=== PATIENT | male | born 1985 | race Hispanic/Latino ===

== ENCOUNTER 2019-06-30 20:22 | Emergency (ER) | payer OTHER ==
[~2019-06-30] VITALS: Ht 172.7 cm; Wt 95.7 kg
[2019-06-30] MEDS ORDERED: KETOROLAC TROMETHAMINE 30 MG/ML VIAL IV STA (20:38)
[2019-06-30] MEDS ORDERED: KETOROLAC TROMETHAMINE 30 MG/ML VIAL ONE (20:52)
[2019-06-30] MEDS ORDERED: SODIUM CHLORIDE 0.9% 1000 ML BAG IV ONE (22:00)
[2019-06-30] MEDS ORDERED: SODIUM CHLORIDE 0.9% 1000ML 1,000 ML ONE (22:05)
--- NOTE | 2019-06-30 22:08 | Diagnostic Imaging Report ---
ADDENDUM #1 In the findings of the body of the report, the kidneys/ureters section should read: KIDNEYS/URETERS: A 4 mm calculus in the left mid ureter with minimal upstream hydroureteronephrosis. Punctate nonobstructive calculi in the bilateral renal inferior pole calyces. No cystic or solid mass lesions. And the first point in the impression should read: A 4 mm obstructive calculus in the left mid ureter with minimal upstream hydroureteronephrosis. Signed by: Nawaf Rose DO on 06/30/2019 10:24 PM ORIGINAL REPORT EXAM: CT Abdomen and Pelvis WITHOUT contrast INDICATION: Left flank pain COMPARISON: None. TECHNIQUE: Abdomen and pelvis were scanned utilizing a multidetector helical scanner from the lung base to the pubic symphysis without administration of IV contrast. Absence of intravenous contrast decreases sensitivity for detection of focal lesions and vascular pathology. Coronal and sagittal reformations were obtained. Routine protocol was performed. IV CONTRAST: None ORAL CONTRAST: None COMPLICATIONS: None RADIATION DOSE: Total DLP: 821 mGy*cm Estimated effective dose: (DLP x 0.015 x size factor) mSv CTDIvol has been reviewed. It is below the limits set by the Radiation Protocol Committee (RPC). Dose modulation, iterative reconstruction, and/or weight based adjustment of the mA/kV was utilized to reduce the radiation dose to as low as reasonably achievable. FINDINGS: LINES and TUBES: None. LOWER THORAX: Partially visualized small intercostal lung hernia along the right right lateral hemithorax presumably from remote trauma/surgery. Linear consolidative opacity and mild bronchiectatic changes in the lingula. HEPATOBILIARY: No focal hepatic lesions. No biliary ductal dilation. GALLBLADDER: There are cholecystectomy clips. SPLEEN: No splenomegaly. PANCREAS: No focal masses or ductal dilatation. ADRENALS: No adrenal nodules KIDNEYS/URETERS: No hydronephrosis. No cystic or solid mass lesions. A 4 mm calculus in the left mid ureter with minimal upstream hydroureteronephrosis. Punctate nonobstructive calculi in the bilateral renal inferior pole calyces. GI TRACT: No abnormal distention, wall thickening, or evidence of bowel obstruction. Appendix is normal. PELVIC ORGANS/BLADDER: Unremarkable. LYMPH NODES: No lymphadenopathy. VESSELS: Unremarkable. PERITONEUM / RETROPERITONEUM: A few postsurgical changes along the ventral upper peritoneum. BONES: Partially visualized bilateral mid rib deformities, presumed related to remote trauma/surgery. Minimal heterotopic ossification along the posterior aspect of the right acetabulum. SOFT TISSUES: Right ventral lower chest soft tissue defect and ventral abdominal defect likely from remote trauma/ surgery. IMPRESSION: 1. A 4 mm obstructive calculus in the left mid ureter with minimal upstream. 2. Linear consolidative opacity and mild bronchiectatic changes in the lingula are likely chronic pulmonary scarring/atelectasis. If patient has high risk pulmonary clinical history, a follow-up chest CT in one year is recommended for further evaluation. Signed by: Nawaf Rose DO on 06/30/2019 10:05 PM
== END 2019-06-30 22:34 | disposition home or self-care (01) ==
LOC: FSED 20:22
DX: R10.32 Left lower quadrant pain (principal); R31.9 Hematuria, unspecified; M54.5 Low back pain; N20.1 Calculus of ureter
CPT/HCPCS: 74176; 80048; 81003; 85025; 99284; J1885; J7030

== ENCOUNTER 2019-08-18 14:10 | Emergency (ER) | payer OTHER ==
[~2019-08-18] VITALS: Ht 170.2 cm; Wt 92.5 kg
--- OUTSIDE RECORDS SUMMARY | 2019-08-18 14:14 | XMS REPORT ---
[facility] Address Unknown Phone Unavailable Care Team Providers Care Director Compensation Name Role Phone UNKNOWN, REFFERING PP Unavailable OLENA CRAIN Unavailable Unavailable RANDYMATEO Unavailable Unavailable Problems This patient has no known problems. Allergies, Adverse Reactions, Alerts This patient has no known allergies or adverse reactions. Medications This patient has no known medications. Encounters Start Date/Time End Date/Time Encounter Type Admission Type Attending [facility] Facility Care Department Encounter ID 2019-06-20 21:31:00 2019-06-20 21:31:00 Emergency E [facility] [id number] 2019-06-01 09:13:00 2019-06-01 09:13:00 Emergency E [facility] [id number] 2019-05-22 18:24:00 2019-05-22 18:24:00 Emergency E [facility] [id number] Results Test Description Test Time Test Comments Text Results Atomic Results Result Comments CT ABD/PEL WO CONTRAST-HOPD 2019-06-30 21:47:00 [place] [address] Patient Name: MARY ANN ZIMMERMAN MR #: [id number] : 1985 Age/Sex: 33/M Req #: [id number] Adm Physician: Ordered by: OLENA CRAIN MD Report #: [id number] Location: [facility] Room/Bed: Procedure: HOPD/CT ABD/PEL WO CONTRAST-HOPD Exam Date: 06/30/19 Exam Time: 2109 REPORT STATUS: Signed ADDENDUM #1 In the fi ndings of the body of the report, the kidneys/ureters section should read: KIDNEYS/URETERS: A 4 mm calculus in the left mid ureter with minimal upstream hydroureteronephrosis. Punctate nonobstructive calculi in the bilateral renal inferior pole calyces. No cystic or solid mass lesions. And the first point in the impression should read: A 4 mm obstructive calculus in the left mid ureter with minimal upstream hydroureteronephrosis. Signed by: Nawaf Rose DO on 06/30/2019 10:24 PM ORIGINAL REPORT EXAM: CT Abdomen and Pelvis WITHOUT contrast INDICATION: Left flank pain COMPARISON: None. TECHNIQUE: Abdomen and pelvis were scanned utilizing a multidetector helical scanner from the lung base to the pubic symphysis without administration of IV contrast. Absence of intravenous contrast decreases sensitivity for detection of focal lesions and vascular pathology. Coronal and sagittal reformations were obtained. Routine protocol was performed. IV CONTRAST: None ORAL CONTRAST: None COMPLICATIONS: None RADIATION DOSE: Total DLP: 821 mGy*cm Estimated effective dose: (DLP x 0.015 x size factor) mSv CTDIvol has been reviewed. It is below the limits set by the Radiation Protocol Committee (RPC). Dose modulation, iterative reconstruction, and/or weight based adjustment of the mA/kV was utilized to reduce the radiation dose to as low as reasonably achievable. FINDINGS: LINES and TUBES: None. LOWER THORAX: Partially visualized small intercostal lung hernia along the right right lateral hemithorax presumably from remote trauma/surgery. Linear consolidative opacity and mild bronchiectatic changes in the lingula. HEPATOBILIARY: No focal hepatic lesions. No biliary ductal dilation. GALLBLADDER: There are cholecystectomy clips. SPLEEN: No splenomegaly. PANCREAS: No focal masses or ductal dilatation. ADRENALS: No adrenal nodules KIDNEYS/URETERS: No hydronephrosis. No cystic or solid mass lesions. A 4 mm calculus in the left mid ureter with minimal upstream hydroureteronephrosis. Punctate nonobstructive calculi in the bilateral renal inferior pole calyces. GI TRACT: No abnormal distention, wall thickening, or evidence of bowel obstruction. Appendix is normal. PELVIC ORGANS /BLADDER: Unremarkable. LYMPH NODES: No lymphadenopathy. VESSELS: Unremarkable. PERITONEUM / RETROPERITONEUM: A few postsurgical changes along the ventral upper peritoneum. BONES: Partially visualized bilateral mid rib deformities, presumed related to remote trauma/surgery. Minimal heterotopic ossification along the posterior aspect of the right acetabulum. SOFT TISSUES: Right ventral lower chest soft tissue defect and ventral abdominal defect likely from remote trauma/ surgery. IMPRESSION: 1. A 4 mm obstructive calculus in the left mid ureter with minimal upstream. 2. Linear consolidative opacity and mild bronchiectatic changes in the lingula are likely chronic pulmonary scarring/atelectasis. If patient has high risk pulmonary clinical history, a follow-up chest CT in one year is recommended for further evaluation. Signed by: Nawaf Rose DO on 06/30/2019 10:05 PM Dictated By: NAWAF ROSE DO Transcribed By: BALTAZAR on 06/30/195 COPY TO: OLENA CRAIN MD Thyroid Stimulating Hormone 2019-05-06 04:08:38 TSH (test code=TSH) 1.450 mIU/mL 0.270-4.200 Lipid [id number] 04:01:24* Test Item Value Reference Range Comments Cholesterol Total (test code=Cholesterol Total) 209 mg/dL 0-200 RISK OF HEART DISEASEPublished by [place] Heart Association Analyte Optimal Borderline Increased RiskCHOL <200 200-239 >240TRIG <150 150-199 >200HDL Male >60 <40HDL Female >60 <50LDL <100 130-159 >160LDL Near optimal is 100-129 Triglycerides (test code=Triglycerides) 189 mg/dL 9-200 HDL (test code=HDL) 51 mg/dL 40-60 LDL (test code=LDL) 121 mg/dL 0-130 The equation being used in this calculation is LDL=(Chol - HDL) - (Trig / 5) VLDL (test code=VLDL) 38 mg/dL 5-40 The equation being used in this calculation is VLDL=Trig / 5 Chol/HDL (test code=Chol/HDL) 4.1 ratio 0.0-5.0 LDL/HDL Ratio (test code=LDL/HDL Ratio) 2 The equation being used in this calculation is LDL/HDL Ratio=LDL Calc/HDL Chol RPR [id number] 11:02:31* Test Item Value Reference Range Comments RPR Qual (test code=RPR Qual) Non-Reactive Non-Reactive Reactive Control (test code=Reactive Control) Reactive Weak Reactive Control (test code=Weak Reactive Control) Weak Reactive Non-Reactive Control (test code=Non-Reactive Control) Non-Reactive Lot # (test code=Lot #) [id number] Expiration Dt (test code=Expiration Dt) 09-11-20 Urine Eljpeal7705-11-30 06:47:45 C Urine Added by [email or web address]_UA_CUL_INDNo growth at 24 hours. No growth at 48 hours.Creatine [id number] 21:50:54* Test Item Value Reference Range Comments CK (test code=CK) 85 U/L 39-308 Troponin [id number] 21:50:54* Test Item Value Reference Range Comments Troponin-T (test code=Troponin-T) <6.000 ng/L 0.000-22.000 The CV of the assay at 99th percentile for both male and female patient population is < 10%. A rise and fall in CONCHITA with at least one value above the 99th percentile with clinical evidence of myocardial ischemia would support a diagnosis of AMI. A delta of at least 20% is recommended to access acute changes in results above the 99th percentile in serial measurements. Stable CONCHITA levels (<20%) delta above the 99th percentile URL would support a diagnosis of chronic myocardial injury. Creatine Kinase MB [id number] 21:50:48* Test Item Value Reference Range Comments CKMB (test code=CKMB) 2.2 ng/mL 0.0-4.9 Creatine [id number] 18:15:48* Test Item Value Reference Range Comments CK (test code=CK) 87 U/L 39-308 Creatine Kinase MB [id number] 18:15:40* Test Item Value Reference Range Comments CKMB (test code=CKMB) 2.2 ng/mL 0.0-4.9 Troponin [id number] 18:15:21* Test Item Value Reference Range Comments Troponin-T (test code=Troponin-T) <6.000 ng/L 0.000-22.000 The CV of the assay at 99th percentile for both male and female patient population is < 10%. A rise and fall in CONCHITA with at least one value above the 99th percentile with clinical evidence of myocardial ischemia would support a diagnosis of AMI. A delta of at least 20% is recommended to access acute changes in results above the 99th percentile in serial measurements. Stable CONCHITA levels (<20%) delta above the 99th percentile URL would support a diagnosis of chronic myocardial injury. Acetaminophen [id number] 01:22:15* Test Item Value Reference Range Comments Acetaminophen Level (test code=Acetaminophen Level) <15.0 ug/mL(g) 15.0-30.0 Salicylate [id number] 01:22:15* Test Item Value Reference Range Comments Salicylate Level (test code=Salicylate Level) <0.3 mg/dL 0.3-10.0 Comprehensive Metabolic [id number] 00:48:57* Test Item Value Reference Range Comments Sodium Level (test code=Sodium Level) 141.0 mmol/L 135.0-145.0 Potassium Level (test code=Potassium Level) 4.1 mmol/L 3.5-5.1 Chloride Level (test code=Chloride Level) 101 mmol/L 98-105 CO2 (test code=CO2) 25 mmol/L 22-29 Anion Gap (test code=Anion Gap) 15 mmol/L 7-16 BUN (test code=BUN) 12.50 mg/dL 6.00-20.00 Creatinine Level (test code=Creatinine Level) 0.80 mg/dL 0.70-1.20 BUN/Creat Ratio (test code=BUN/Creat Ratio) 16 Glucose Level (test code=Glucose Level) 96 mg/dL 70-115 Calcium Level (test code=Calcium Level) 9.7 mg/dL 8.3-10.5 Alk Phos (test code=Alk Phos) 72 U/L 40-129 Bilirubin Total (test code=Bilirubin Total) 0.3 mg/dL 0.1-0.9 Albumin Level (test code=Albumin Level) 4.8 g/dL 3.5-5.2 Protein Total (test code=Protein Total) 8.1 g/dL 6.4-8.3 ALT (test code=ALT) 48 U/L 1-41 AST (test code=AST) 27 U/L 1-40 Globulin (test code=Globulin) 3.3 g/dL 2.9-3.1 A/G Ratio (test code=A/G Ratio) 1.5 ratio Comprehensive Metabolic [id number] 00:48:57* Test Item Value Reference Range Comments Sodium Level (test code=Sodium Level) 141.0 mmol/L 135.0-145.0 Potassium Level (test code=Potassium Level) 4.1 mmol/L 3.5-5.1 Chloride Level (test code=Chloride Level) 101 mmol/L 98-105 CO2 (test code=CO2) 25 mmol/L 22-29 Anion Gap (test code=Anion Gap) 15 mmol/L 7-16 BUN (test code=BUN) 12.50 mg/dL 6.00-20.00 Creatinine Level (test code=Creatinine Level) 0.80 mg/dL 0.70-1.20 BUN/Creat Ratio (test code=BUN/Creat Ratio) 16 Glucose Level (test code=Glucose Level) 96 mg/dL 70-115 Calcium Level (test code=Calcium Level) 9.7 mg/dL 8.3-10.5 Alk Phos (test code=Alk Phos) 72 U/L 40-129 Bilirubin Total (test code=Bilirubin Total) 0.3 mg/dL 0.1-0.9 Albumin Level (test code=Albumin Level) 4.8 g/dL 3.5-5.2 Protein Total (test code=Protein Total) 8.1 g/dL 6.4-8.3 ALT (test code=ALT) 48 U/L 1-41 AST (test code=AST) 27 U/L 1-40 Globulin (test code=Globulin) 3.3 g/dL 2.9-3.1 A/G Ratio (test code=A/G Ratio) 1.5 ratio eGFR AA (test code=eGFR AA) >60 mL/min/1.73 m2 eGFR (estimated Glomerular Filtration Rate) is an estimated value, calculated from the patient's serum creatinine using the MDRD equation. It is NOT the patient's actual GFR. The eGFR provides a more clinically useful measure of kidney disease than serum creatinine alone.This calculation takes sex and race into account, if the information is provided. If the race is not provided, and the patient is -Turkish, multiply by 1.212. If sex is not provided, and the patient is female, multiply by 0.742. Results for patients <18 years of age have not been validated by the MDRD study and should be interpreted with caution. eGFR Result Interpretation:eGFR > or=60 is in the Normal RangeeGFR < 60 may mean kidney diseaseeGFR < 15 may mean kidney failure Ranges recommended by the National Kidney Foundation, http://nkdep.nih.gov Alcohol [id number] 00:48:57* Test Item Value Reference Range Comments Ethanol Level (test code=Ethanol Level) 0.06 g/dL 0.00-0.01 Intoxicated 0.080 g/dL or more Ethanol Inst (test code=Ethanol Inst) 55 Comprehensive Metabolic [id number] 00:48:57* Test Item Value Reference Range Comments Sodium Level (test code=Sodium Level) 141.0 mmol/L 135.0-145.0 Potassium Level (test code=Potassium Level) 4.1 mmol/L 3.5-5.1 Chloride Level (test code=Chloride Level) 101 mmol/L 98-105 CO2 (test code=CO2) 25 mmol/L 22-29 Anion Gap (test code=Anion Gap) 15 mmol/L 7-16 BUN (test code=BUN) 12.50 mg/dL 6.00-20.00 Creatinine Level (test code=Creatinine Level) 0.80 mg/dL 0.70-1.20 BUN/Creat Ratio (test code=BUN/Creat Ratio) 16 Glucose Level (test code=Glucose Level) 96 mg/dL 70-115 Calcium Level (test code=Calcium Level) 9.7 mg/dL 8.3-10.5 Alk Phos (test code=Alk Phos) 72 U/L 40-129 Bilirubin Total (test code=Bilirubin Total) 0.3 mg/dL 0.1-0.9 Albumin Level (test code=Albumin Level) 4.8 g/dL 3.5-5.2 Protein Total (test code=Protein Total) 8.1 g/dL 6.4-8.3 ALT (test code=ALT) 48 U/L 1-41 AST (test code=AST) 27 U/L 1-40 Globulin (test code=Globulin) 3.3 g/dL 2.9-3.1 A/G Ratio (test code=A/G Ratio) 1.5 ratio eGFR AA (test code=eGFR AA) >60 mL/min/1.73 m2 eGFR (estimated Glomerular Filtration Rate) is an estimated value, calculated from the patient's serum creatinine using the MDRD equation. It is NOT the patient's actual GFR. The eGFR provides a more clinically useful measure of kidney disease than serum creatinine alone.This calculation takes sex and race into account, if the information is provided. If the race is not provided, and the patient is -Turkish, multiply by 1.212. If sex is not provided, and the patient is female, multiply by 0.742. Results for patients <18 years of age have not been validated by the MDRD study and should be interpreted with caution. eGFR Result Interpretation:eGFR > or=60 is in the Normal RangeeGFR < 60 may mean kidney diseaseeGFR < 15 may mean kidney failure Ranges recommended by the National Kidney Foundation, http://nkdep.nih.gov eGFR Non-AA (test code=eGFR Non-AA) >60.00 mL/min/1.73 m2 eGFR (estimated Glomerular Filtration Rate) is an estimated value, calculated from the patient's serum creatinine using the MDRD equation. It is NOT the patient's actual GFR. The eGFR provides a more clinically useful measure of kidney disease than serum creatinine alone.This calculation takes sex and race into account, if the information is provided. If the race is not provided, and the patient is -Turkish, multiply by 1.212. If sex is not provided, and the patient is female, multiply by 0.742. Results for patients <18 years of age have not been validated by the MDRD study and should be interpreted with caution. eGFR Result Interpretation:eGFR > or=60 is in the Normal RangeeGFR < 60 may mean kidney diseaseeGFR < 15 may mean kidney failure Ranges recommended by the National Kidney Foundation, http://nkdep.nih.gov Drugs of Abuse Urine [id number] 00:42:16* Test Item Value Reference Range Comments Amphetamine Screen Ur (test code=Amphetamine Screen Ur) Negative Negative For diagnostic purposes only. Positive results should always be assessed in conjunction with a patient's medical history. Barbiturate Screen Ur (test code=Barbiturate Screen Ur) Negative Negative Benzodiazepines Ur (test code=Benzodiazepines Ur) Negative Negative Cocaine Screen Ur (test code=Cocaine Screen Ur) Negative Negative U Methadone (test code=U Methadone) Negative Negative Opiate Screen Ur (test code=Opiate Screen Ur) Negative Negative U PCP Scrn (test code=U PCP Scrn) Negative Negative U Propoxyphene (test code=U Propoxyphene) Negative Negative Cannabinoid Screen Ur (test code=Cannabinoid Screen Ur) Negative Negative Urinalysis [id number] 00:39:34* Test Item Value Reference Range Comments UA WBC (test code=UA WBC) 20-29 0-5 UA RBC (test code=UA RBC) 20-29 0-5 UA Bacteria (test code=UA Bacteria) Few UA Squam Epithelial (test code=UA Squam Epithelial) 20-29 UA Mucous (test code=UA Mucous) Moderate Complete Blood Count with [id number] 00:31:50* Test Item Value Reference Range Comments WBC (test code=WBC) 11.6 x10 4.4-10.5 RBC (test code=RBC) 5.55 x10 4.10-5.70 Hgb (test code=Hgb) 16.4 g/dL 13.4-17.4 Hct (test code=Hct) 49.1 % 38.7-52.0 MCV (test code=MCV) 88.50 fL 80.00-100.00 MCHC (test code=MCHC) 33.40 g/dL 32.00-37.50 RDW CV (test code=RDW CV) 13.9 % 11.5-14.5 MCH (test code=MCH) 29.5 pg 27.0-32.5 Platelets (test code=Platelets) 383.0 x10 140.0-440.0 MPV (test code=MPV) 10.2 fL Slide Review (test code=Slide Review) Auto Auto Result created by [email or web address]_AUTO nRBC (test code=nRBC) 0 NRBC Abs (test code=NRBC Abs) 0.00 x10 IPF (test code=IPF) 0 % Automated [id number] 00:31:50* Test Item Value Reference Range Comments Neutro Auto (test code=Neutro Auto) 65.1 % 36.0-70.0 Lymph Auto (test code=Lymph Auto) 24.8 % 12.0-44.0 [place] Auto (test code=[place] Auto) 7.5 % 0.0-11.0 Eos, Auto (test code=Eos, Auto) 1.9 % 0.0-7.0 Basophil Auto (test code=Basophil Auto) 0.4 % 0.0-2.0 Neutro Absolute (test code=Neutro Absolute) 7.6 x10 1.6-7.4 Lymph Absolute (test code=Lymph Absolute) 2.88 x10 .50-4.60 [place] Absolute (test code=[place] Absolute) .87 x10 .00-1.20 Eos Absolute (test code=Eos Absolute) 0.22 x10 0.00-0.74 Baso Absolute (test code=Baso Absolute) 0.05 x10 0.00-0.21 IG [id number] 00:31:50* Test Item Value Reference Range Comments IG (test code=IG) 0.3 % 0.0-5.0 IG Abs (test code=IG Abs) 0 x10 Urinalysis with Culture, if [id number] 00:30:28* Test Item Value Reference Range Comments UA Color (test code=UA Color) STRAW Yellow UA Appear (test code=UA Appear) CLEAR Clear UA pH (test code=UA pH) 5 UA Spec Grav (test code=UA Spec Grav) 1.012 1.001-1.035 UA Glucose (test code=UA Glucose) NEG Negative UA Bili (test code=UA Bili) NEG Negative UA Ketones (test code=UA Ketones) NEG Negative UA Blood (test code=UA Blood) 10 cells/mcL Negative UA Protein (test code=UA Protein) NEG Negative UA Urobilinogen (test code=UA Urobilinogen) 0.2 mg/dL UA Nitrite (test code=UA Nitrite) NEG Negative UA Leuk Est (test code=UA Leuk Est) 25 cells/mcL Negative UA Micro Ind? (test code=UA Micro Ind?) Indicated Not Indicated Result created by rule [email or web address]_UA_MICRO_IND Urinalysis [id number] 16:09:00* Test Item Value Reference Range Comments Color (test code=COLOR) Yellow Yellow,Straw,Pl yellow Clarity (test code=CLAR) Clear Clear Specific [place] (test code=SPGR) 1.010 1.001-1.035 pH (test code=PH) 5.0 5.0-9.0 Ketone (test code=KET) Negative mg/dL Negative Glucose (test code=GLUCUR) Negative mg/dL Negative Protein (test code=PROT) 25 mg/dL Negative Bilirubin (test code=BILI) See IctoTest mg/dL Negative Occult Blood (test code=UDOB) Small Negative Urobilinogen (test code=UROB) 0.2 mg/dL 0.2-1.0 Nitrite (test code=NIT) Negative Negative Leuk Esterase (test code=LEUK) Negative Negative Ictotest (test code=ICTOTEST) Confirmed Negative Negative,Confirmed Negative Micros Exam (test code=MEXAM) Indicated Epithelial Cells (test code=EPI) 3-5 /LPF 0-30 WBC, Urine (test code=UWBC) None seen /HPF 0-5 RBC, Urine (test code=URBC) 0-2 /HPF 0-5 Bacteria (test code=BACT) None /HPF 69358&PELVIS W/[id number] 16:05:54CT ABDOMEN AND PELVIS W/CONTRASTHISTORY: Abdominal painCOMPARISON: Chest x-ray dated July 17, 2014TECHNIQUE: Axial images of the abdomen and pelvis were obtainedfollowing the administration of 100 mL Isovue-300 contrast. Coronal andsagittal reformats were provided. Coronal and sagittal reformats wereprovided. One or more of the following dose reduction techniques wereused: Automated exposure control, adjustment of the mA and/or kVaccording to patient size, and/or utilization of iterativereconstruction technique.Oral contrast: Not providedFINDINGS:Lower thorax: Chronic peribronchial thickening and scarring are noted inthe lingula. There is herniation of lung between the right lateralfourth and fifth ribs. Both findings are stable to the comparison chestradiograph.Hepatobiliary: D iffuse low-attenuation of the liver consistent withfatty infiltration. No biliar y ductal dilatation.Gallbladder: Absent.Spleen: Unremarkable.Pancreas: Unremar kable.Adrenals: Unremarkable.Kidneys/ureters: A few nonobstructing stones are present in bothkidneys. These measure as large as 4 mm and 6 mm in the right an d leftkidneys respectively. No ureteral stone is identified. There is nohydron ephrosis.Pelvic organs/bladder: The urinary bladder is empty. The prostateglan d and seminal vesicles are unremarkable.Vessels: Unremarkable.Lymph nodes: No ly mphadenopathy.Peritoneum: There is marked diastasis of the rectus abdominis musc les. Fat and a portion of the mid transverse colon protrude through thedefect. No obstruction or strangulation.Retroperitoneum: Normal.Bowel: The small and lar ge bowel loops are fluid-filled with scatteredair-fluid levels. No pathologic d istention is seen. The appendix isnormal.Bones/soft tissues: Old bilateral rib f ractures are partially imaged.IMPRESSION:1. Fluid-filled small and large bowel loops. Correlate fordiarrhea/enteritis.2. Ventral hernia without evidence of o bstruction.3. Mild bilateral nephrolithiasis. No hydronephrosis.LOCATION: R16 [id number] 11:36:00* Test Item Value Reference Range Comments Lipase (test code=LIP) 17 U/L 13-60 Comprehensive Metabolic [id number] 11:36:00* Test Item Value Reference Range Comments Sodium (test code=NA) 138 mmol/L 135-145 Potassium (test code=K) 4.3 mmol/L 3.5-5.1 Chloride (test code=CL) 98 mmol/L 98-105 Carbon Dioxide (test code=CO2) 26 mmol/L 22-29 Glucose (test code=GLU) 106 mg/dL 70-115 Blood Urea Nitrogen (test code=BUN) 15 mg/dL 6-20 Creatinine (test code=CREAT) 0.8 mg/dL 0.7-1.2 Calcium (test code=CA) 9.5 mg/dL 8.3-10.5 Prot Total (test code=TP) 9.0 g/dL 6.4-8.3 Albumin (test code=ALB) 5.0 g/dL 3.5-5.2 A/G Ratio (test code=AGRATIO) 1.3 Ratio Globulin (test code=GLOB) 4.0 2.9-3.1 Bili Total (test code=TBIL) 0.6 mg/dL 0.1-0.9 Alk Phos (test code=APHOS) 88 U/L 40-129 AST (test code=AST) 28 U/L 1-40 ALT (test code=ALT) 53 U/L 1-41 BUN/Creatinine Ratio (test code=BCRATIO) 18.8 Anion Gap (test code=AGAP) 14 mmol/L 7-16 Estimated GFR (test code=GFR) >60 mL/min/1.73m2 eGFR (estimated Glomerular Filtration Rate) is an estimated value,calculated from the patient's serum creatinine using the MDRD equation.It is NOT the patient's actual GFR. The eGFR provides a more clinicallyuseful measure of kidney disease than serum creatinine alone.This calculation takes sex and race into account, if the informationis provided. If the race is not provided, and the patient isAfrican-Turkish, multiply by 1.212. If sex is not provided, and thepatient is female, multiply by 0.742. Results for patients <18 years ofage have not been validated by the MDRD study and should be interpretedwith caution.eGFR Result Interpretation:eGFR > or=60 is in the Normal RangeeGFR < 60 may mean kidney diseaseeGFR < 15 may mean kidney failureRanges recommended by the National Kidney Foundat ion,http://nkdep.nih.gov CBC with [id number] 11:23:00* Test Item Value Reference Range Comments WBC (test code=WBC) 8.2 K/cumm 4.4-10.5 RBC (test code=RBC) 6.16 M/cumm 4.10-5.70 Hemoglobin (test code=HGB) 17.5 gm/dL 13.4-17.4 Hematocrit (test code=HCT) 54.6 % 38.7-52.0 MCV (test code=MCV) 88.5 fL 80-100 MCH (test code=MCH) 28.4 pg 27.0-32.5 MCHC (test code=MCHC) 32.1 g/dL 32.0-37.5 RDW (test code=RDW) 13.1 % 11.5-14.5 Platelet Count (test code=PLTCT) 313 K/cumm 140-440 MPV (test code=MPV) 8.0 fL Diff Method (test code=DIFFM) Auto Neutrophil (test code=NEUT) 80.9 % 36-70 Lymphocyte (test code=LYMPH) 14.9 % 12-44 Monocyte (test code=MONO) 1.8 % 0-11 Eosinophil (test code=EOS) 2.2 % 0-7 Basophil (test code=BASO) 0.2 % 0-2 Neutro Abs (test code=ANEUT) 6.7 K/cumm 1.6-7.4 Lymph Abs (test code=ALYMPH) 1.2 K/cumm 0.5-4.6 [place] Abs (test code=AMONO) 0.2 K/cumm 0.0-1.2 Eos Abs (test code=AEOS) 0.18 K/cumm 0.00-0.74 Baso Abs (test code=ABASO) 0.0 K/cumm 0.00-0.21
[2019-08-18] MEDS ORDERED: MORPHINE SULFATE 2 MG/ML SYR 1ML IV STA (14:23)
[2019-08-18] MEDS ORDERED: ONDANSETRON HCL INJ 2MG/ML 2ML 2 MG/ML VIAL IV STA (14:23)
[2019-08-18] MEDS ORDERED: ASPIRIN 325 MG TAB PO ONE (14:30)
[2019-08-18] MEDS ORDERED: ONDANSETRON HCL INJ 2MG/ML 2ML 2 MG/ML VIAL ONE (14:38)
[2019-08-18] MEDS ORDERED: MORPHINE SULFATE INJ 4 MG/ML INJ 1ML ONE (14:39)
[2019-08-18] MEDS ORDERED: ASPIRIN 325 MG TAB ONE (14:39)
[2019-08-18] MEDS ORDERED: SODIUM CHLORIDE 0.9% 50ML 50 ML ONE (14:49)
[2019-08-18] MEDS ORDERED: IOPAMIDOL 370 MG/ML 200 ML INFUS..BTL INJ ONE (14:50)
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
[2019-08-18] MEDS ORDERED: KETOROLAC TROMETHAMINE 30 MG/ML VIAL IV STA (15:23)
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
[2019-08-18 16:34] VITALS: BP 117/64
== END 2019-08-18 16:39 | disposition home or self-care (01) ==
LOC: FSED 14:10
DX: R07.89 Other chest pain (principal); S29.011A Strain of muscle and tendon of front wall of thorax, initial encounter
CPT/HCPCS: 71046; 71260; 80053; 82553; 84484; 85025; 93005; 99284; J1885; J2270; J2405; Q9967

== ENCOUNTER 2019-10-20 22:36 | Emergency (ER) | payer OTHER ==
[~2019-10-20] VITALS: Ht 170.2 cm; Wt 92.5 kg
[2019-10-20] MEDS ORDERED: KETOROLAC TROMETHAMINE 30 MG/ML VIAL IV STA (22:42)
[2019-10-20] MEDS ORDERED: KETOROLAC TROMETHAMINE 60 MG/2 ML VIAL IM ONE (22:45)
[2019-10-20] MEDS ORDERED: KETOROLAC TROMETHAMINE 60 MG/2 ML VIAL ONE (22:52)
--- NOTE | 2019-10-20 23:56 | Diagnostic Imaging Report ---
EXAM: CT Abdomen and Pelvis WITHOUT contrast INDICATION: Hematuria, flank pain COMPARISON: Chest CT 08/18/2019, abdominal CT 06/30/2019 TECHNIQUE: Abdomen and pelvis were scanned utilizing a multidetector helical scanner from the lung base to the pubic symphysis without administration of IV contrast. Absence of intravenous contrast decreases sensitivity for detection of focal lesions and vascular pathology. Coronal and sagittal reformations were obtained. Routine protocol was performed. IV CONTRAST: None ORAL CONTRAST: None COMPLICATIONS: None RADIATION DOSE: Total DLP: 879 mGy*cm Estimated effective dose: (DLP x 0.015 x size factor) mSv CTDIvol has been reviewed. It is below the limits set by the Radiation Protocol Committee (RPC). Dose modulation, iterative reconstruction, and/or weight based adjustment of the mA/kV was utilized to reduce the radiation dose to as low as reasonably achievable. FINDINGS: LINES and TUBES: None. LOWER THORAX: Chronic consolidative opacity with pneumatocele in the lingula. Partially visualized small intercostal lung hernia along the right right lateral hemithorax presumably from remote trauma/surgery. HEPATOBILIARY: No focal hepatic lesions. No biliary ductal dilation. GALLBLADDER: There are cholecystectomy clips. SPLEEN: No splenomegaly. PANCREAS: No focal masses or ductal dilatation. ADRENALS: No adrenal nodules KIDNEYS/URETERS: A 4 mm obstructive calculus at the left ureterovesicular junction, with minimal upstream left hydroureteronephrosis. A few punctate calculi in the bilateral kidneys. No obvious renal masses. GI TRACT: No abnormal distention, wall thickening, or evidence of bowel obstruction. Appendix is normal. PELVIC ORGANS/BLADDER: Unremarkable. LYMPH NODES: No lymphadenopathy. VESSELS: Unremarkable. PERITONEUM / RETROPERITONEUM: No free air or fluid. BONES: Partially visualized bilateral mid rib deformities, presumed related to remote trauma/surgery. Minimal heterotopic ossification along the posterior aspect of the right acetabulum. SOFT TISSUES: Right ventral lower chest soft tissue defect and ventral abdominal defect likely from remote trauma/ surgery. IMPRESSION: A 4 mm obstructive calculus at the left ureterovesicular junction, with minimal upstream left hydroureteronephrosis. Signed by: Nawaf Rose DO on 10/20/2019 11:52 PM
== END 2019-10-20 23:42 | disposition home or self-care (01) ==
LOC: FSED 22:36
DX: R31.9 Hematuria, unspecified (principal); M54.5 Low back pain; N20.1 Calculus of ureter
CPT/HCPCS: 74176; 81003; 99283; J1885; 93005

== ENCOUNTER 2020-01-21 23:59 | Emergency (ER) | payer OTHER ==
[~2020-01-21] VITALS: Ht 170.2 cm; Wt 99.8 kg
[2020-01-22] MEDS ORDERED: ALBUTEROL/IPRATROPIUM 3 ML NEB NEB ONE (00:30)
[2020-01-22] MEDS ORDERED: ALBUTEROL/IPRATROPIUM 3 ML NEB ONE (00:37)
[2020-01-22] MEDS ORDERED: TESSALON PERLE100 MG PO (01:32)
[2020-01-22] MEDS ORDERED: DOXYCYCLINE HY100 MG PO (01:32)
[2020-01-22] MEDS ORDERED: PROAIR HFA INH8.5 GM INH (01:32)
[2020-01-22 01:45] VITALS: BP 132/69
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
== END 2020-01-22 01:42 | disposition home or self-care (01) ==
LOC: FSED 23:59
DX: J20.9 Acute bronchitis, unspecified (principal)
CPT/HCPCS: 71046; 99283

== ENCOUNTER 2020-04-29 16:22 | Emergency (ER) | payer OTHER ==
[~2020-04-29] VITALS: Ht 170.2 cm; Wt 99.8 kg
[~2020-04-29 16:22] MED LIST: DOXYCYCLINE HY100 MG PO; PROAIR HFA INH8.5 GM INH; TESSALON PERLE100 MG PO
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
[2020-04-29 19:10] VITALS: BP 107/68
== END 2020-04-29 19:08 | disposition home or self-care (01) ==
LOC: FSED 16:22
DX: R07.89 Other chest pain (principal); R09.1 Pleurisy; G40.909 Epilepsy, unspecified, not intractable, without status epilepticus; Z98.0 Intestinal bypass and anastomosis status
CPT/HCPCS: 71045; 93005; 99283

== ENCOUNTER 2021-02-04 11:14 | Emergency (ER) | payer OTHER ==
[~2021-02-04] VITALS: Ht 172.7 cm; Wt 95.3 kg
[2021-02-04] MEDS ORDERED: KETOROLAC TROMETHAMINE 30 MG/ML VIAL IV STA (11:47)
[2021-02-04] MEDS ORDERED: KETOROLAC TROMETHAMINE 30 MG/ML VIAL ONE (12:36)
[2021-02-04] MEDS ORDERED: CYCLOBENZAPRINE5 MG PO (13:48)
[2021-02-04 13:49] VITALS: BP 112/66
[2021-02-05] MEDS ORDERED: LACTULOSE20 GM/30 M PO (00:54)
== END 2021-02-04 14:13 | disposition home or self-care (01) ==
LOC: FSED 11:18
DX: R07.89 Other chest pain (principal); R09.1 Pleurisy; R06.02 Shortness of breath; G40.909 Epilepsy, unspecified, not intractable, without status epilepticus; Z98.0 Intestinal bypass and anastomosis status
CPT/HCPCS: 71045; 80053; 82553; 83880; 84484; 85025; 85379; 99283; J1885; 93005

== ENCOUNTER 2021-02-04 23:23 | Emergency (ER) | payer OTHER ==
[~2021-02-04] VITALS: Ht 172.7 cm; Wt 113.4 kg
[~2021-02-04 23:23] MED LIST changes: +CYCLOBENZAPRINE5 MG PO
[2021-02-05] MEDS ORDERED: LACTULOSE20 GM/30 M PO (00:54)
[2021-02-05 01:08] VITALS: BP 112/76
== END 2021-02-05 01:08 | disposition home or self-care (01) ==
LOC: FSED 23:59
DX: R10.13 Epigastric pain (principal); G40.909 Epilepsy, unspecified, not intractable, without status epilepticus; Z98.0 Intestinal bypass and anastomosis status
CPT/HCPCS: 74176; 80048; 80076; 85025; 99283

== ENCOUNTER → 2021-08-03 | Emergency (ER) | payer OTHER ==
[~2021-08-03] MED LIST changes: +LACTULOSE20 GM/30 M PO
== END | disposition left against medical advice (07) ==
LOC: FSED 21:11
DX: R07.9 Chest pain, unspecified (principal)
CPT/HCPCS: 93005

== ENCOUNTER 2022-04-23 21:45 | Emergency (ER) | payer OTHER ==
[~2022-04-23] VITALS: Ht 170.2 cm; Wt 99.8 kg
[2022-04-23] MEDS ORDERED: DEXAMETHASONE SOD PHOS 10 MG/1 ML VIAL IV ONE (22:15)
[2022-04-23] MEDS ORDERED: ALBUTEROL/IPRATROPIUM 3 ML NEB NEB ONE ×2 (22:15→23:45)
[2022-04-23 22:18] LABS: BASOPHILS % 0.4 % (0.0-1.0); EOSINOPHILS # (AUTO) 0.4 (0.0-0.4); EOSINOPHILS % 5.1 % (0.0-6.0); HEMATOCRIT 48.8 % (38.2-49.6); HEMOGLOBIN 15.6 g/dL (14.0-18.0); LYMPHOCYTES # (AUTO) 1.8 (1.0-3.2); LYMPHOCYTES % 25.5 % (18.0-39.1); MEAN CORPUSCULAR HEMOGLOBIN 28.9 pg (28-32); MEAN CORPUSCULAR VOLUME 90.5 fL (81-99); MONOCYTES % 14.6 % (4.4-11.3); NEUTROPHILS # (AUTO) 3.7 (2.1-6.9); NEUTROPHILS % 54.3 % (38.7-80.0); PLATELET COUNT 265 x10e3/uL (140-360); RED BLOOD COUNT 5.39 x10e6/uL (4.3-5.7); RED CELL DISTRIBUTION WIDTH 13.9 % (11.7-14.4)
[2022-04-23] MEDS ORDERED: ALBUTEROL/IPRATROPIUM 3 ML NEB ONE ×2 (22:35→23:55)
[2022-04-23 22:36] LABS: ALANINE AMINOTRANSFERASE 36 IU/L (0-55); ALBUMIN 3.9 g/dL (3.5-5.0); ALBUMIN/GLOBULIN RATIO 0.9 (0.8-2.0); ALKALINE PHOSPHATASE 68 IU/L (40-150); ANION GAP 14.5 mmol/L (8-16); BLOOD UREA NITROGEN 13 mg/dL (7-26); BUN/CREATININE RATIO 16 (6-25); CALCIUM 9.1 mg/dL (8.4-10.2); CARBON DIOXIDE 27 mmol/L (22-29); CHLORIDE 104 mmol/L (98-107); CREATINE KINASE 65 IU/L (30-200); CREATININE, SERUM 0.82 mg/dL (0.72-1.25); GLUCOSE 113 mg/dL (74-118); POTASSIUM 3.5 mmol/L (3.5-5.1); SODIUM 142 mmol/L (136-145)
[2022-04-23] MEDS ORDERED: KETOROLAC TROMETHAMINE 30 MG/ML VIAL IV STA (23:20)
[2022-04-23 23:52] LABS: CLARITY,URINE CLOUDY (CLEAR); COLOR,URINE YELLOW (YELLOW)
[2022-04-23 23:53] LABS: AMPHETAMINES SCREEN,URINE NEGATIVE (NEGATIVE); BENZODIAZEPINES SCREEN,URINE NEGATIVE (NEGATIVE); KETONES,URINE NEGATIVE (NEGATIVE); LEUKOCYTE ESTERASE ,URINE NEGATIVE (NEGATIVE); NITRITE,URINE NEGATIVE (NEGATIVE); PHENCYCLIDINE SCREEN,URINE NEGATIVE (NEGATIVE); PROTEIN,URINE DIPSTICK NEGATIVE (NEGATIVE); URINE UROBILINOGEN 0.2 mg/dL (0.2 - 1)
[2022-04-23 23:56] LABS: AMORPHOUS SEDIMENT,URINE MANY (FEW); BACTERIA,URINE MANY /HPF; EPITHELIAL CELLS,URINE FEW /LPF; RBC,URINE 0-5 /HPF (0-5); WBC,URINE (MAN) 0-5 /HPF (0-5)
[2022-04-24] MEDS ORDERED: PROVENTIL HFA6.7 GM INH (00:31)
== END 2022-04-24 01:00 | disposition home or self-care (01) ==
LOC: ER 21:48
DX: R06.02 Shortness of breath (principal); J45.909 Unspecified asthma, uncomplicated; R07.89 Other chest pain; R09.1 Pleurisy; G40.909 Epilepsy, unspecified, not intractable, without status epilepticus; Z98.0 Intestinal bypass and anastomosis status; Z20.822 Contact with and (suspected) exposure to COVID-19
CPT/HCPCS: 36415; 71046; 80053; 80307; 81001; 82550; 82553; 84484; 85025; 85379; 93005; 94640 ×2; 94799; 99284; J1100; J1885; U0002

== ENCOUNTER 2022-04-25 11:10 | Emergency (ER) | payer OTHER ==
[~2022-04-25] VITALS: Ht 170.2 cm; Wt 99.8 kg
[~2022-04-25 11:10] MED LIST changes: +PROVENTIL HFA6.7 GM INH
[2022-04-25] MEDS ORDERED: KETOROLAC TROMETHAMINE 30 MG/ML VIAL IV STA (11:18)
[2022-04-25] MEDS ORDERED: METHYLPREDNISOLONE SOD SUCC 125 MG/2ML VIAL IV ONE (11:30)
[2022-04-25] MEDS ORDERED: ALBUTEROL/IPRATROPIUM 3 ML NEB NEB ONE (11:30)
[2022-04-25 11:49] LABS: BASOPHILS % 0.4 % (0.0-1.0); EOSINOPHILS # (AUTO) 0.2 (0.0-0.4); EOSINOPHILS % 2.1 % (0.0-6.0); HEMATOCRIT 45.4 % (38.2-49.6); HEMOGLOBIN 14.5 g/dL (14.0-18.0); LYMPHOCYTES # (AUTO) 1.5 (1.0-3.2); LYMPHOCYTES % 21.3 % (18.0-39.1); MEAN CORPUSCULAR HEMOGLOBIN 28.9 pg (28-32); MEAN CORPUSCULAR HGB CONC 31.9 g/dL (31-35); MEAN CORPUSCULAR VOLUME 90.6 fL (81-99); MONOCYTES # (AUTO) 0.6 (0.2-0.8); MONOCYTES % 8.7 % (4.4-11.3); NEUTROPHILS # (AUTO) 4.8 (2.1-6.9); NEUTROPHILS % 67.2 % (38.7-80.0); PLATELET COUNT 282 x10e3/uL (140-360); RED BLOOD COUNT 5.01 x10e6/uL (4.3-5.7); RED CELL DISTRIBUTION WIDTH 13.8 % (11.7-14.4)
[2022-04-25 11:59] LABS: INR 0.89; PROTHROMBIN TIME 12.9 seconds (11.9-14.5)
[2022-04-25 12:00] LABS: PARTIAL THROMBOPLASTIN TIME 26.3 seconds (23.8-35.5)
[2022-04-25 12:08] LABS: ALBUMIN 3.2 g/dL (3.5-5.0); ALBUMIN/GLOBULIN RATIO 0.8 (0.8-2.0); ANION GAP 14.6 mmol/L (8-16); CALCIUM 10.8 mg/dL (8.4-10.2); CREATININE, SERUM 0.69 mg/dL (0.72-1.25); POTASSIUM 3.6 mmol/L (3.5-5.1)
[2022-04-25 12:14] LABS: CREATINE KINASE MB 3.2 ng/mL (0-5.0)
[2022-04-25] MEDS ORDERED: IOPAMIDOL 370 MG/ML 100 ML INFUS..BTL INJ ONE (12:26)
[2022-04-25 15:03] VITALS: BP 107/72
== END 2022-04-25 15:05 | disposition home or self-care (01) ==
LOC: ER 11:20
DX: R07.9 Chest pain, unspecified (principal); R06.02 Shortness of breath; G40.909 Epilepsy, unspecified, not intractable, without status epilepticus; Z98.0 Intestinal bypass and anastomosis status; Z95.4 Presence of other heart-valve replacement; R94.31 Abnormal electrocardiogram [ECG] [EKG]; F17.210 Nicotine dependence, cigarettes, uncomplicated
CPT/HCPCS: 36415; 71260; 80053; 82550; 82553; 84484; 85025; 85379; 85610; 85730; 93005; 99284; J1885; J2930; Q9967

== ENCOUNTER 2022-04-29 01:11 | Inpatient (IN) | payer OTHER ==
[~2022-04-29] VITALS: Ht 170.2 cm; Wt 99.8 kg
[2022-04-29] VITALS (9 sets, daily range): BP systolic 85–105; BP diastolic 48–80
[2022-04-29] MEDS ORDERED: SODIUM CHLORIDE 0.9% 1000ML 1,000 ML IV STA (01:24)
[2022-04-29] MEDS ORDERED: ONDANSETRON HCL INJ 2MG/ML 2ML 2 MG/ML VIAL IV STA (01:32)
[2022-04-29] MEDS ORDERED: Morphine 4mg INJECTION 4 MG/ML INJ IV STA (01:32)
[2022-04-29 01:42] LABS: BASOPHILS # (AUTO) 0.1 (0.0-0.1); BASOPHILS % 0.4 % (0.0-1.0); EOSINOPHILS # (AUTO) 0.5 (0.0-0.4); EOSINOPHILS % 2.8 % (0.0-6.0); HEMATOCRIT 48.5 % (38.2-49.6); HEMOGLOBIN 15.7 g/dL (14.0-18.0); LYMPHOCYTES # (AUTO) 4.6 (1.0-3.2); LYMPHOCYTES % 28.3 % (18.0-39.1); MEAN CORPUSCULAR HGB CONC 32.4 g/dL (31-35); MEAN CORPUSCULAR VOLUME 89.5 fL (81-99); MONOCYTES # (AUTO) 1.2 (0.2-0.8); MONOCYTES % 7.3 % (4.4-11.3); NEUTROPHILS # (AUTO) 9.7 (2.1-6.9); NEUTROPHILS % 59.9 % (38.7-80.0); PLATELET COUNT 392 x10e3/uL (140-360); RED BLOOD COUNT 5.42 x10e6/uL (4.3-5.7); RED CELL DISTRIBUTION WIDTH 13.4 % (11.7-14.4)
[2022-04-29] MEDS ORDERED: Morphine 4mg INJECTION 4 MG/ML INJ ONE (01:50)
[2022-04-29] MEDS ORDERED: SODIUM CHLORIDE 0.9% 1000ML 1,000 ML ONE (01:50)
[2022-04-29] MEDS ORDERED: ONDANSETRON HCL INJ 2MG/ML 2ML 2 MG/ML VIAL ONE (01:50)
[2022-04-29 02:02] LABS: ALANINE AMINOTRANSFERASE 63 IU/L (0-55); ALBUMIN 3.7 g/dL (3.5-5.0); ALBUMIN/GLOBULIN RATIO 0.9 (0.8-2.0); ALKALINE PHOSPHATASE 74 IU/L (40-150); ANION GAP 14.4 mmol/L (8-16); BLOOD UREA NITROGEN 24 mg/dL (7-26); BUN/CREATININE RATIO 30 (6-25); CALCIUM 9.2 mg/dL (8.4-10.2); CARBON DIOXIDE 28 mmol/L (22-29); CHLORIDE 102 mmol/L (98-107); CREATINE KINASE 77 IU/L (30-200); CREATININE, SERUM 0.81 mg/dL (0.72-1.25); GLUCOSE 113 mg/dL (74-118); POTASSIUM 4.4 mmol/L (3.5-5.1); SODIUM 140 mmol/L (136-145)
[2022-04-29] MEDS ORDERED: IOPAMIDOL 370 MG/ML 100 ML INFUS..BTL INJ ONE (02:26)
[2022-04-29] MEDS ORDERED: FENTANYL CITRATE/PF 100MCG/2 ML INJ IV ONE (02:45)
[2022-04-29] MEDS: SODIUM CHLORIDE 0.9% 1000ML 1,000 ML IV SCH ×3 (04:15→21:05)
[2022-04-29 04:25] LABS: AMPHETAMINES SCREEN,URINE NEGATIVE (NEGATIVE); BENZODIAZEPINES SCREEN,URINE NEGATIVE (NEGATIVE); PHENCYCLIDINE SCREEN,URINE NEGATIVE (NEGATIVE)
[2022-04-29 04:43] LABS: CLARITY,URINE CLEAR (CLEAR); COLOR,URINE YELLOW (YELLOW); LEUKOCYTE ESTERASE ,URINE NEGATIVE (NEGATIVE); NITRITE,URINE NEGATIVE (NEGATIVE)
[2022-04-29 04:44] LABS: BACTERIA,URINE FEW /HPF; EPITHELIAL CELLS,URINE FEW /LPF; KETONES,URINE NEGATIVE (NEGATIVE); PROTEIN,URINE DIPSTICK NEGATIVE (NEGATIVE); URINE UROBILINOGEN 0.2 mg/dL (0.2 - 1)
[2022-04-29] MEDS: Morphine 4mg INJECTION 4 MG/ML INJ IV PRN ×3 (05:04→21:05)
[2022-04-29] MEDS: ONDANSETRON HCL INJ 2MG/ML 2ML 2 MG/ML VIAL IV PRN ×3 (05:04→21:05)
[2022-04-29] MEDS ORDERED: tylenol #3 PO (10:32)
[2022-04-29 10:34] LABS: CREATINE KINASE 68 IU/L (30-200)
[2022-04-29 16:19] LABS: CREATINE KINASE 56 IU/L (30-200)
[2022-04-29 16:51] LABS: CHOL/HDL RATIO 5.3 (3.9-4.7)
[2022-04-29 20:43] LABS: CREATINE KINASE 58 IU/L (30-200)
[2022-04-30] VITALS (8 sets, daily range): BP systolic 96–117; BP diastolic 56–71
[2022-04-30] MEDS: SODIUM CHLORIDE 0.9% 1000ML 1,000 ML IV SCH ×2 (03:48→12:43)
[2022-04-30 07:52] LABS: BASOPHILS % 0.4 % (0.0-1.0); EOSINOPHILS # (AUTO) 0.4 (0.0-0.4); EOSINOPHILS % 3.9 % (0.0-6.0); HEMATOCRIT 46.4 % (38.2-49.6); HEMOGLOBIN 14.6 g/dL (14.0-18.0); LYMPHOCYTES # (AUTO) 2.9 (1.0-3.2); LYMPHOCYTES % 30.1 % (18.0-39.1); MEAN CORPUSCULAR HEMOGLOBIN 28.6 pg (28-32); MEAN CORPUSCULAR HGB CONC 31.5 g/dL (31-35); MEAN CORPUSCULAR VOLUME 90.8 fL (81-99); MONOCYTES # (AUTO) 0.7 (0.2-0.8); MONOCYTES % 7.5 % (4.4-11.3); NEUTROPHILS # (AUTO) 5.4 (2.1-6.9); PLATELET COUNT 322 x10e3/uL (140-360); RED BLOOD COUNT 5.11 x10e6/uL (4.3-5.7); RED CELL DISTRIBUTION WIDTH 13.4 % (11.7-14.4)
[2022-04-30 08:11] LABS: ALBUMIN 3.1 g/dL (3.5-5.0); ALBUMIN/GLOBULIN RATIO 0.8 (0.8-2.0); ANION GAP 12.1 mmol/L (8-16); CALCIUM 8.4 mg/dL (8.4-10.2); CREATININE, SERUM 0.66 mg/dL (0.72-1.25); POTASSIUM 4.1 mmol/L (3.5-5.1)
[2022-04-30] MEDS: ONDANSETRON HCL INJ 2MG/ML 2ML 2 MG/ML VIAL IV PRN ×2 (09:06→15:38)
[2022-04-30] MEDS: Morphine 4mg INJECTION 4 MG/ML INJ IV PRN ×3 (09:06→21:45)
[2022-04-30] MEDS ORDERED: Morphine 2mg Syringe 2 MG/ML SYR ONE (09:11)
[2022-04-30] MEDS ORDERED: BENZONATATE 100 MG CAP PO PRN (12:15)
[2022-05-01] VITALS (7 sets, daily range): BP systolic 101–122; BP diastolic 59–72
[2022-05-01] MEDS ORDERED: METOCLOPRAMIDE HCL 10 MG/2ML VIAL IV STA (01:03)
[2022-05-01] MEDS ORDERED: BENZONATATE 100 MG CAP PO STA (01:07)
[2022-05-01] MEDS: Morphine 4mg INJECTION 4 MG/ML INJ IV PRN ×5 (02:23→22:15)
[2022-05-01] MEDS: BENZONATATE 100 MG CAP PO SCH ×3 (06:12→21:50)
[2022-05-01] MEDS: SODIUM CHLORIDE 0.9% 1000ML 1,000 ML IV SCH ×4 (06:51→21:50)
[2022-05-01] MEDS: METOCLOPRAMIDE HCL 10 MG/2ML VIAL IV SCH ×4 (10:29→21:50)
[2022-05-02] VITALS: BP 100/55
[2022-05-02] MEDS: Morphine 4mg INJECTION 4 MG/ML INJ IV PRN ×2 (02:15→11:11)
[2022-05-02 04:00] VITALS: BP 110/63
[2022-05-02] MEDS: SODIUM CHLORIDE 0.9% 1000ML 1,000 ML IV SCH (04:00)
[2022-05-02] MEDS: BENZONATATE 100 MG CAP PO SCH (05:40)
[2022-05-02 08:27] VITALS: BP 109/53
[2022-05-02] MEDS: METOCLOPRAMIDE HCL 10 MG/2ML VIAL IV SCH ×2 (09:15→11:11)
[2022-05-02] MEDS ORDERED: ONDANSETRON ODT4 MG PO (10:33)
[2022-05-02] MEDS ORDERED: CEPHALEXIN500 MG PO (10:33)
[2022-05-02] MEDS ORDERED: PANTOPRAZOLE SO40 MG PO (10:33)
[2022-05-02] MEDS: ONDANSETRON HCL INJ 2MG/ML 2ML 2 MG/ML VIAL IV PRN (11:11)
[2022-05-02 12:46] VITALS: BP 107/71
[2022-05-02] MEDS ORDERED: ONDANSETRON HCL 4 MG ORAL DISINTEGRATING TAB PO PRN (13:00)
[2022-05-02] MEDS ORDERED: METOCLOPRAMIDE HCL 10 MG TAB PO SCH (16:30)
[2022-05-02] MEDS ORDERED: PANTOPRAZOLE SOD 40 MG TABEC PO SCH (18:00)
== END 2022-05-02 11:35 | disposition home or self-care (01) | DRG 690 ==
LOC: ER 01:20 → ERHOLD 04:17 → MED/SURG3 06:33 → OBSVTOIN 15:37
PROVIDERS: ADMIT Internal Medicine; ATTEND Internal Medicine
DX: N39.0 Urinary tract infection, site not specified (principal); G40.909 Epilepsy, unspecified, not intractable, without status epilepticus; N20.0 Calculus of kidney; J98.4 Other disorders of lung; Z68.34 Body mass index [BMI] 34.0-34.9, adult; E66.9 Obesity, unspecified; Z95.2 Presence of prosthetic heart valve; Z88.8 Allergy status to other drugs, medicaments and biological substances; Z90.49 Acquired absence of other specified parts of digestive tract; K29.70 Gastritis, unspecified, without bleeding; Z90.2 Acquired absence of lung [part of]; Z20.822 Contact with and (suspected) exposure to COVID-19
CPT/HCPCS: 36415; 71046; 74177; 80053; 80061; 80307; 81001; 82270; 82550; 82553; 82784; 83036; 83516; 83690; 84484; 85025; 86256; 87086; 93005; 96361; 99284; J0696; J2270; J2405; J2765; J3010; J7030; Q9967